=== PATIENT | male | born 2000 | race Caucasian/White ===

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

== ENCOUNTER 2021-10-05 14:59 | Emergency (ER) | payer BC, OTHER ==
[2021-10-05] MEDS ORDERED: Lidocaine 1% 5 ML VIAL INJECT ONE (15:15)
[2021-10-05] MEDS ORDERED: Bacitracin/Neomycin/Polymyxin B Oint 0.9 GM U/D Packet TOP ONE (15:46)
== END 2021-10-05 16:02 | disposition home or self-care (01) ==
LOC: LL.ED 14:59
DX: S41.112A Laceration without foreign body of left upper arm, initial encounter (principal); W26.8XXA Contact with other sharp object(s), not elsewhere classified, initial encounter; Y92.009 Unspecified place in unspecified non-institutional (private) residence as the place of occurrence of the external cause
CPT/HCPCS: 12002; 99282